=== PATIENT | male | born 1985 | race Caucasian/White ===

== ENCOUNTER 2022-12-13 10:31 | Emergency (ER) | payer BC, SELFPAY ==
[2022-12-13 10:33] VITALS: BP 150/103; PULSE 95; RESP 16; TEMP 35.9; O2SAT 97; BMI 41.8
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
--- NOTE | 2022-12-13 10:55 | RAD_ITS ---
STUDY: X-RAY - RIGHT RADIUS AND ULNA REASON FOR EXAM: Male, 36 years old. pain TECHNIQUE: 2 view(s) of the forearm. COMPARISON: None. FINDINGS: There is no demonstrated soft tissue swelling. Normal visualized radius. Normal visualized ulna. There is no demonstrated acute fracture. RAD/Forearm 2 Views IMPRESSION: Normal x-ray examination of the radius and ulna. Electronically Signed: Llaito Lynn MD at 11:31 EDT ,
[2022-12-13] MEDS: BACITRACIN 15 GM Tube 1 APPLIC TOPICAL (12:28)
[2022-12-13 12:29] VITALS: RESP 18
== END 2022-12-13 12:38 | disposition home or self-care (01) ==
PROVIDERS: Emergency Provider Emergency Medicine; Visit Provider Emergency Medicine
DX: S50.812A Abrasion of left forearm, initial encounter (principal); Y92.410 Unspecified street and highway as the place of occurrence of the external cause; S50.12XA Contusion of left forearm, initial encounter; V43.52XA Car driver injured in collision with other type car in traffic accident, initial encounter; W22.11XA Striking against or struck by driver side automobile airbag, initial encounter; Z90.49 Acquired absence of other specified parts of digestive tract
CPT/HCPCS: 73090; 99284